=== PATIENT | female | born 1945 | race Caucasian/White ===

== ENCOUNTER 2018-10-13 11:52 | Day surgery (SDC) | payer MEDICARE ==
[2018-10-13 10:26] LABS: BASOPHILS ABSOLUTE AUTO 0.02 K/mm3 (0.00-0.23); BASOPHILS PERCENT AUTO 0 % (0-2); EOSINOPHILS ABSOLUTE AUTO 0.18 K/mm3 (0.00-0.68); EOSINOPHILS PERCENT AUTO 3 % (0-6); Hematocrit 26.4 % (33.0-51.0); Hemoglobin 7.7 g/dL (11.5-16.0); IMMATURE GRAN ABSOLUTE AUTO 0.02 K/mm3 (0.00-0.10); IMMATURE GRAN PERCENT AUTO 0 % (0-1); LYMPHOCYTES ABSOLUTE AUTO 1.84 K/mm3 (0.84-5.20); LYMPHOCYTES PERCENT AUTO 34 % (21-46); MONOCYTES ABSOLUTE AUTO 0.29 K/mm3 (0.16-1.47); MONOCYTES PERCENT AUTO 5 % (4-13); Mean Corpuscular HGB 24.2 pg (26.0-34.0); Mean Corpuscular HGB Conc 29.2 g/dL (31.5-36.5); Mean Corpuscular Volume 83 fL (80-100); Mean Platelet Volume 10.6 fL (9.1-12.4); NEUTROPHILS ABSOLUTE AUTO 3.08 K/mm3 (1.96-9.15); NEUTROPHILS PERCENT AUTO 57 % (41-73); Platelet Count 223 K/mm3 (150-400); RDW Coefficient Variation 15.3 % (11.7-14.2); RDW Standard Deviation 46.7 fL (35.1-46.3); Red Blood Cell Count 3.18 M/mm3 (3.80-5.20); White Blood Cell Count 5.43 K/mm3 (4.00-11.30)
[~2018-10-13 11:52] MED LIST: ALLO300 PO; ASPI81EC PO; CARV3.125 PO; CEPH500 PO; CITA20 PO; CLOP75 PO; CYCL10; EFFIENT10 MG PO; FURO40 PO; GLIM4 PO; HYDHCL25 PO; INSULANPEN SC; LOSA25 PO; METF500 PO; POTA10T PO; PRAV20 PO; Percocet 5-3251 EACH PO; SITA100T2 PO; VICODIN 5-3001 EACH
[2018-10-13] MEDS ORDERED: ALPR1 PO (15:17)
[2018-10-13] MEDS ORDERED: TRULICITY1.5 MG/0.5 SC (15:23)
[2018-10-13] MEDS ORDERED: TRAZ100 PO (15:24)
[2018-10-13] MEDS ORDERED: QVAR REDIHALE10.6 G1 INH (15:25)
[2018-10-13] MEDS ORDERED: ALBU90OI61 INH (15:27)
== END 2018-10-13 17:05 | disposition home or self-care (01) ==
LOC: ATC 11:52
PROVIDERS: Nurse Practitioner Family
DX: D50.8 Other iron deficiency anemias (principal)
CPT/HCPCS: 36415; 36430; 85025; 86850; 86900; 86901; 86923; J7050; P9016

== ENCOUNTER → 2018-11-08 | Outpatient (CLI) | payer MEDICARE ==
[~2018-11-08] MED LIST changes: +ALBU90OI61 INH; +ALPR1 PO; +QVAR REDIHALE10.6 G1 INH; +TRAZ100 PO; +TRULICITY1.5 MG/0.5 SC
[2018-11-09 06:18] LABS: Stool Occult Bld Immuno 1 Negative (NEGATIVE)
== END | disposition home or self-care (01) ==
LOC: LAB EV 13:55 → LAB SHORT 13:55
PROVIDERS: Nurse Practitioner Family
DX: D50.8 Other iron deficiency anemias (principal)
CPT/HCPCS: G0328

== ENCOUNTER → 2019-02-10 | Outpatient (CLI) | payer MEDICARE ==
[~2019-02-10] MED LIST changes: +ACID REDUCER 1150 MG PO; +Glucophage1000 MG PO; +Pravachol80 MG PO; +TRAZ50 PO; +TRULICITY0.75 MG/0. SC; +ZYRTEC10 M1 PO
== END ==
LOC: LAB EV 07:30
DX: E11.65 Type 2 diabetes mellitus with hyperglycemia (principal)
CPT/HCPCS: 82043

== ENCOUNTER → 2021-11-10 | Outpatient (CLI) | payer MEDICARE | LOC: LAB 17:38 → LAB SHORT 17:38 | DX: E53.8 Deficiency of other specified B group vitamins (principal) | CPT/HCPCS: 82607; 82746 ==

== ENCOUNTER 2023-02-15 10:36 | Day surgery (SDC) | payer MEDICARE ==
[~2023-02-15] VITALS: Ht 152.4 cm; Wt 92.5 kg
[2023-02-15] MEDS ORDERED: TRULICITY0.75 MG/01 (10:58)
[2023-02-15 12:57] VITALS: BP 90/77
== END 2023-02-15 12:45 | disposition home or self-care (01) ==
LOC: ORSCSDS 10:36
PROVIDERS: Student in an Organized Health Care Education/Training Program
PROC: 0DB68ZX Excision of Stomach, Via Natural or Artificial Opening Endoscopic, Diagnostic (ICD-10-PCS; principal; 2023-02-15 12:00)
DX: K74.60 Unspecified cirrhosis of liver (principal); K29.70 Gastritis, unspecified, without bleeding; K31.7 Polyp of stomach and duodenum; K44.9 Diaphragmatic hernia without obstruction or gangrene; D64.9 Anemia, unspecified; E11.22 Type 2 diabetes mellitus with diabetic chronic kidney disease; I12.9 Hypertensive chronic kidney disease with stage 1 through stage 4 chronic kidney disease, or unspecified chronic kidney disease; Z86.73 Personal history of transient ischemic attack (TIA), and cerebral infarction without residual deficits; E78.00 Pure hypercholesterolemia, unspecified; F41.9 Anxiety disorder, unspecified; F32.A Depression, unspecified; Z95.1 Presence of aortocoronary bypass graft; N18.30 Chronic kidney disease, stage 3 unspecified; R06.02 Shortness of breath; E66.01 Morbid (severe) obesity due to excess calories; Z68.41 Body mass index [BMI] 40.0-44.9, adult; Z79.02 Long term (current) use of antithrombotics/antiplatelets; Z79.899 Other long term (current) drug therapy
CPT/HCPCS: 82947; 88305; 88341; 88342; J2001; J2370; J2704; J7120

== ENCOUNTER → 2023-04-22 | Outpatient (CLI) | payer MEDICARE | END | disposition home or self-care (01) | LOC: LAB 08:33 | DX: I50.9 Heart failure, unspecified (principal); E11.22 Type 2 diabetes mellitus with diabetic chronic kidney disease; E11.59 Type 2 diabetes mellitus with other circulatory complications; N18.32 Chronic kidney disease, stage 3b; E78.2 Mixed hyperlipidemia; I25.10 Atherosclerotic heart disease of native coronary artery without angina pectoris ==

== ENCOUNTER 2024-12-25 09:44 | Observation (INO) | payer MEDICARE ==
[~2024-12-25] VITALS: Ht 149.9 cm; Wt 88.4 kg
[~2024-12-25 09:44] MED LIST changes: +ASPIR 8181 M1 PO; +BUSP5 PO; +CLOPIDOGREL300 M1; +FARXIGA5 MG PO; +MECL12.5 PO; +MONT10T PO; +Pravastatin Sod80 MG PO; +TRULICITY0.75 MG/01; +TRULICITY0.75 MG/01 SC; +Ventolin5 MG/1 ML INH; +Vitamin D1000 UNI1 PO
[2024-12-25 10:16] LABS: BASOPHILS ABSOLUTE AUTO 0.03 K/mm3 (0.00-0.23); BASOPHILS PERCENT AUTO 1 % (0-2); EOSINOPHILS ABSOLUTE AUTO 0.31 K/mm3 (0.00-0.68); EOSINOPHILS PERCENT AUTO 6 % (0-6); Hemoglobin 13.6 g/dL (11.5-16.0); IMMATURE GRAN ABSOLUTE AUTO 0.01 K/mm3 (0.00-0.10); IMMATURE GRAN PERCENT AUTO 0 % (0-1); LYMPHOCYTES ABSOLUTE AUTO 1.76 K/mm3 (0.84-5.20); LYMPHOCYTES PERCENT AUTO 31 % (21-46); MONOCYTES ABSOLUTE AUTO 0.36 K/mm3 (0.16-1.47); MONOCYTES PERCENT AUTO 6 % (4-13); Mean Corpuscular HGB 31.9 pg (26.0-34.0); Mean Corpuscular HGB Conc 33.2 g/dL (31.5-36.5); Mean Corpuscular Volume 96 fL (80-100); Mean Platelet Volume 10.9 fL (9.1-12.4); NEUTROPHILS ABSOLUTE AUTO 3.14 K/mm3 (1.96-9.15); NEUTROPHILS PERCENT AUTO 56 % (41-73); Platelet Count 142 K/mm3 (150-400); RDW Coefficient Variation 15.4 % (11.7-14.2); RDW Standard Deviation 53.7 fL (35.1-46.3); Red Blood Cell Count 4.27 M/mm3 (3.80-5.20); White Blood Cell Count 5.61 K/mm3 (4.00-11.30)
[2024-12-25 10:41] LABS: Albumin, Blood 3.8 g/dL (3.4-5.0); Bilirubin, Total 1.4 mg/dL (0.1-1.0); Bun/Creatinine Ratio 21.6 (12.0-20.0); Calcium, Blood 9.6 mg/dL (8.5-10.1); Creatinine, Blood 1.71 mg/dL (0.40-1.00); Globulin, Blood 3.8 g/dL (2.2-4.0); Potassium, Blood 3.9 mmol/L (3.5-5.5); Total Protein, Blood 7.6 g/dL (6.4-8.2)
[2024-12-25] MEDS ORDERED: Enoxaparin 100 MG/ML 1ML SYR SC SCH (12:30)
[2024-12-25 17:42] VITALS: BP 104/76
--- NOTE | 2024-12-25 18:07 | NUR ---
PATIENT ARRIVED TO FLOOR AT 1740 FROM ED AFTER RECEIVING REPORT FROM JENA-PIERRE AN RN. PATIENT ACCOMPANIED BY DAUGHTER, JASON, AND HER GRANDDAUGHTER. PLEASANT AND COOPERATIVE c CARE. NO C/O PAIN, BUT DOES REPORT SOME IRRITATION IN LAC R/T IV. PARESTHESIA LUE, BUT NOT DEFICIT NOTED ON NEURO EXAM. CARDIAC STENT PLACED 2012 AND OPEN-HEARTED SURGERY c METAL CLOSURES IN 2002 IN [facility]. FAXED REQUEST FOR RECORDS.
[2024-12-25 19:47] VITALS: BP 146/78
[2024-12-25] MEDS ORDERED: Montelukast Sodium 10 MG Tab PO SCH (21:00)
[2024-12-26 00:05] VITALS: BP 111/63
--- NOTE | 2024-12-26 03:55 | NUR ---
Inbound Sales Representative Shift Summary Vital signs stable. Patient has been instructed to use call light when getting out of bed or returning from the bathroom, although has had to be frequently reminded throughout the night to use call light when out of bed. Otherwise patient has been quielty resting in bed with SCD's on. Able to turn self in bed for comfort. Voiced discomfort of IV, but continues to flush well. Call light within reach, Bed rails up x2. Bed in lowest position for safety. Will continue to monitor.
--- NOTE | 2024-12-26 04:00 | NUR ---
I HAVE READ AND ASSISTED/OBSERVED STUDENT NURSE WITH CARE AND DOCUMENTATION. AND I AGREE WITH SAID INFO.
[2024-12-26 04:01] VITALS: BP 116/78
[2024-12-26 05:09] LABS: BASOPHILS ABSOLUTE AUTO 0.03 K/mm3 (0.00-0.23); BASOPHILS PERCENT AUTO 1 % (0-2); EOSINOPHILS ABSOLUTE AUTO 0.32 K/mm3 (0.00-0.68); EOSINOPHILS PERCENT AUTO 6 % (0-6); Hematocrit 40.1 % (33.0-51.0); Hemoglobin 13.1 g/dL (11.5-16.0); IMMATURE GRAN ABSOLUTE AUTO 0.01 K/mm3 (0.00-0.10); IMMATURE GRAN PERCENT AUTO 0 % (0-1); LYMPHOCYTES ABSOLUTE AUTO 2.26 K/mm3 (0.84-5.20); LYMPHOCYTES PERCENT AUTO 41 % (21-46); MONOCYTES ABSOLUTE AUTO 0.33 K/mm3 (0.16-1.47); MONOCYTES PERCENT AUTO 6 % (4-13); Mean Corpuscular HGB 31.5 pg (26.0-34.0); Mean Corpuscular HGB Conc 32.7 g/dL (31.5-36.5); Mean Corpuscular Volume 96 fL (80-100); Mean Platelet Volume 10.7 fL (9.1-12.4); NEUTROPHILS ABSOLUTE AUTO 2.55 K/mm3 (1.96-9.15); NEUTROPHILS PERCENT AUTO 46 % (41-73); Platelet Count 131 K/mm3 (150-400); RDW Coefficient Variation 15.4 % (11.7-14.2); Red Blood Cell Count 4.16 M/mm3 (3.80-5.20)
[2024-12-26 05:34] LABS: Anion Gap 12 mmol/L (3-11); Blood Urea Nitrogen 37 mg/dL (8-24); Bun/Creatinine Ratio 21.3 (12.0-20.0); CO2, Blood 27 mmol/L (21-32); Calcium, Blood 9.3 mg/dL (8.5-10.1); Chloride, Blood 104 mmol/L (98-108); Cholesterol 123 mg/dL (50-200); Creatinine, Blood 1.74 mg/dL (0.40-1.00); Glomerular Filtration Rate 29 (60-); Glucose, Blood 126 mg/dL (70-99); HDL Cholesterol 63 mg/dL (>39); LDL/HDL RATIO 0.6; Low Density Lipoprotein Chol 36 mg/dL (0-110); Potassium, Blood 3.5 mmol/L (3.5-5.5); Sodium, Blood 139 mmol/L (136-145); Triglycerides 119 mg/dL (30-160); Very Low Density Lipoprot Chol 23 mg/dL (6-32)
[2024-12-26 07:36] VITALS: BP 116/68
--- NOTE | 2024-12-26 08:05 | NUR ---
ASSUMPTION OF CARE: ASSUMED CARE OF PATIENT. WOKEN FOR BEDSIDE SHIFT REPORT. LYING SUPINE IN BED c HOB ELEVATED. ROOM AIR. TELE AFIB @ 78. BREATHING EVEN AND UNLABORED. ROOM AIR. TELE AFIB @ 78. PT TO ROOM TO WORK WITH PATIENT IMMEDIATELY AFTER REPORT. BED IN LOWEST POSITION. CALL LIGHT WITHIN REACH. NO ACUTE NEEDS.
[2024-12-26] MEDS ORDERED: Aspirin 81 MG Chew PO SCH (09:00)
[2024-12-26] MEDS ORDERED: Furosemide 10 MG/ML 4ML Vial IV SCH (09:00)
[2024-12-26] MEDS ORDERED: Loratadine 10 MG Tab PO SCH (09:00)
[2024-12-26] MEDS ORDERED: Pravastatin Sodium 20 MG Tab PO SCH (09:00)
[2024-12-26] MEDS ORDERED: Allopurinol 300 MG Tab PO SCH (09:00)
[2024-12-26] MEDS ORDERED: Empagliflozin 10 MG TAB PO SCH (09:00)
[2024-12-26] MEDS ORDERED: BusPIRone HCl 10 MG Tab PO SCH (09:00)
--- NOTE | 2024-12-26 10:59 | NUR ---
CALL FROM [facility] IN [place]: RECORDS PURGED D/T BEING >10 YEARS AND ARE NO LONGER AVAILABLE. CALL TO [facility] TO SEE IF THEY HAVE RECORDS PATIENT IS SEEN THERE AND HAD SIGNED JERALD AT ONE POINT TO HAVE RECORDS SENT. FRAMER SENT MESSAGE TO [facility] WHO WILL RETURN CALL ONCE THEY KNOW IF THEY HAVE RECORDS AVAILABLE OR NOT.
[2024-12-26] MEDS ORDERED: OZEMPIC2 MG/0.75 SC (11:04)
--- NOTE | 2024-12-26 14:29 | NUR ---
RECEIVED CALL FROM [facility]: THEY DO NOT HAVE A COPY OF PATIENT'S NOTES FROM [place] THEY HAVE ALSO BEEN PURGED. PATIENT ALSO DOES NOT HAVE A COPY OF THE STENT CARD IN HER [place]AL[place], SHE USED TO.
[2024-12-26 16:26] VITALS: BP 114/62
[2024-12-26] MEDS ORDERED: PRAV20 PO (17:53)
[2024-12-26] MEDS ORDERED: ELIQUIS2.5 MG PO (17:54)
--- NOTE | 2024-12-26 19:07 | NUR ---
DISCHARGE SUMMARY: A&Ox4. PLEASANT AND COOPERATIVE WITH CARE. CALLS APPROPRIATELY AND IS ABLE TO ADVOCATE NEEDS EFFECTIVELY. AMBULATES INDEPENDENTLY. MEDS WHOLE c FLUIDS. CONTINENT OF BOWEL AND BLADDER. TELE AFIB. UNABLE TO SECURE RECORDS FROM [place] REGARDING HEART PROCEDURES; MRI UNABLE TO BE DONE. WILL DO REPEAT CT OUTPATIENT. MEDICATIONS FAXED TO [facility]. INSTRUCTED TO FOLLOW-UP WITH PCP. LEFT FLOOR WITH ALL BELONGINGS AND DISCHARGE PACKET, ESCORTED BY DAUGHTER. TRANSPORTATION PROVIDED BY DAUGHTER VIA POV.
== END 2024-12-26 18:05 | disposition home or self-care (01) ==
LOC: ER 09:44 → MEDS 09:45
PROVIDERS: Emergency Medicine; ADMIT Internal Medicine
DX: I63.9 Cerebral infarction, unspecified (principal); I48.91 Unspecified atrial fibrillation; E11.22 Type 2 diabetes mellitus with diabetic chronic kidney disease; I13.0 Hypertensive heart and chronic kidney disease with heart failure and stage 1 through stage 4 chronic kidney disease, or unspecified chronic kidney disease; N18.4 Chronic kidney disease, stage 4 (severe); I50.33 Acute on chronic diastolic (congestive) heart failure; I25.10 Atherosclerotic heart disease of native coronary artery without angina pectoris; E78.5 Hyperlipidemia, unspecified; M81.0 Age-related osteoporosis without current pathological fracture; G47.33 Obstructive sleep apnea (adult) (pediatric); Z66 Do not resuscitate; Z88.8 Allergy status to other drugs, medicaments and biological substances; Z79.899 Other long term (current) drug therapy; Z91.011 Allergy to milk products; Z95.1 Presence of aortocoronary bypass graft
CPT/HCPCS: 36415; 70450; 71046; 80048; 80053; 80061; 83036; 83880; 84484; 85025; 93005; 93010; 93306; 96372; 96372-59; 96374; 97112; 97161; 99285-25; A9270; G0378; J1650; J1938; J1940

== ENCOUNTER 2025-03-04 14:44 | Inpatient (IN) | payer MEDICARE ==
[~2025-03-04] VITALS: Ht 149.9 cm; Wt 91.5 kg
[~2025-03-04 14:44] MED LIST changes: +ELIQUIS2.5 MG PO; +OZEMPIC2 MG/0.75 SC
[2025-03-04] MEDS ORDERED: NS 1,000 ML IV SCH (15:50)
[2025-03-04 16:32] LABS: Albumin, Blood 3.1 g/dL (3.4-5.0); Albumin/Globulin Ratio 0.9 (0.8-1.8); Bilirubin, Total 0.7 mg/dL (0.1-1.0); Calcium, Blood 8.6 mg/dL (8.5-10.1); Creatinine, Blood 1.95 mg/dL (0.40-1.00); Globulin, Blood 3.3 g/dL (2.2-4.0); Potassium, Blood 5.1 mmol/L (3.5-5.5); Total Protein, Blood 6.4 g/dL (6.4-8.2)
[2025-03-04 16:37] LABS: BASOPHILS ABSOLUTE AUTO 0.02 K/mm3 (0.00-0.23); BASOPHILS PERCENT AUTO 0 % (0-2); EOSINOPHILS PERCENT AUTO 0 % (0-6); IMMATURE GRAN ABSOLUTE AUTO 0.09 K/mm3 (0.00-0.10); IMMATURE GRAN PERCENT AUTO 1 % (0-1); LYMPHOCYTES ABSOLUTE AUTO 1.92 K/mm3 (0.84-5.20); LYMPHOCYTES PERCENT AUTO 22 % (21-46); MONOCYTES ABSOLUTE AUTO 0.46 K/mm3 (0.16-1.47); MONOCYTES PERCENT AUTO 5 % (4-13); Mean Corpuscular HGB 33.5 pg (26.0-34.0); Mean Corpuscular HGB Conc 32.5 g/dL (31.5-36.5); Mean Corpuscular Volume 103 fL (80-100); Mean Platelet Volume 10.9 fL (9.1-12.4); NEUTROPHILS PERCENT AUTO 72 % (41-73); NRBC Auto 1.1 /100 WBC (0.0-0.2); Platelet Count 205 K/mm3 (150-400); RDW Coefficient Variation 17.7 % (11.7-14.2); RDW Standard Deviation 61.7 fL (35.1-46.3); Red Blood Cell Count 1.64 M/mm3 (3.80-5.20); White Blood Cell Count 8.89 K/mm3 (4.00-11.30)
[2025-03-04 16:38] LABS: Hematocrit 16.9 % (33.0-51.0); Hemoglobin 5.5 g/dL (11.5-16.0)
[2025-03-04] MEDS ORDERED: Etomidate 2MG / ML 10ML Vial IV ONE (17:03)
[2025-03-04] MEDS ORDERED: Pantoprazole Sodium 40 MG in NS 50 ML IV SCH (17:50)
[2025-03-04] MEDS ORDERED: Phytonadione 10 MG in NS 50 ML IV ONE (17:50)
[2025-03-04] MEDS ORDERED: Human Prothrombin Complx(Pcc) 2,000 UNIT in Water For Injection,Sterile 80 ML IV ONE (18:00)
[2025-03-04 18:05] LABS: D-Dimer, Quantitative 0.36 mg/L FEU (0.00-0.52); Prothrombin Time Results 64.5 Sec (9.7-11.5)
[2025-03-04] MEDS ORDERED: Ondansetron HCl 2 MG / ML 2ML Vial IV PRN (18:20)
[2025-03-04] MEDS ORDERED: WARF5 PO (18:28)
[2025-03-04] MEDS ORDERED: Octreotide Acetate 50 MCG in NS 50 ML IV STA (18:31)
[2025-03-04 18:57] LABS: Percent Saturation 10.1 % (15.0-50.0)
[2025-03-04] MEDS ORDERED: Octreotide Acetate 500 MCG in NS 250 ML IV SCH (19:00)
[2025-03-04 19:01] LABS: International Normalized Ratio 6.75
[2025-03-04] MEDS ORDERED: Phenylephrine HCl 100 MCG/ML-NS 10MLSYR (1MG/10ML) IV ONE (19:32)
[2025-03-05] VITALS (12 sets, daily range): BP systolic 81–110; BP diastolic 52–72
[2025-03-05 01:45] LABS: Hemoglobin 7.3 g/dL (11.5-16.0)
[2025-03-05] MEDS ORDERED: Acetaminophen 325 MG TABLET PO PRN (04:50)
[2025-03-05] MEDS ORDERED: Metoprolol Tartrate 1 MG/ML 5 ML VIAL IV ONE (05:00)
[2025-03-05 05:58] LABS: BASOPHILS ABSOLUTE AUTO 0.02 K/mm3 (0.00-0.23); BASOPHILS PERCENT AUTO 0 % (0-2); EOSINOPHILS ABSOLUTE AUTO 0.07 K/mm3 (0.00-0.68); EOSINOPHILS PERCENT AUTO 1 % (0-6); Hematocrit 21.1 % (33.0-51.0); Hemoglobin 7.1 g/dL (11.5-16.0); IMMATURE GRAN ABSOLUTE AUTO 0.08 K/mm3 (0.00-0.10); IMMATURE GRAN PERCENT AUTO 1 % (0-1); LYMPHOCYTES ABSOLUTE AUTO 1.96 K/mm3 (0.84-5.20); LYMPHOCYTES PERCENT AUTO 20 % (21-46); MONOCYTES ABSOLUTE AUTO 0.62 K/mm3 (0.16-1.47); MONOCYTES PERCENT AUTO 6 % (4-13); Mean Corpuscular HGB Conc 33.6 g/dL (31.5-36.5); Mean Corpuscular Volume 95 fL (80-100); Mean Platelet Volume 11.2 fL (9.1-12.4); NEUTROPHILS ABSOLUTE AUTO 7.18 K/mm3 (1.96-9.15); NEUTROPHILS PERCENT AUTO 72 % (41-73); Platelet Count 147 K/mm3 (150-400); RDW Coefficient Variation 19.9 % (11.7-14.2); RDW Standard Deviation 63.7 fL (35.1-46.3); Red Blood Cell Count 2.22 M/mm3 (3.80-5.20); White Blood Cell Count 9.93 K/mm3 (4.00-11.30)
[2025-03-05 06:10] LABS: International Normalized Ratio 1.33
[2025-03-05 06:24] LABS: Albumin/Globulin Ratio 1.1 (0.8-1.8); Bilirubin, Total 1.9 mg/dL (0.1-1.0); Bun/Creatinine Ratio 40.3 (12.0-20.0); Calcium, Blood 8.3 mg/dL (8.5-10.1); Creatinine, Blood 2.16 mg/dL (0.40-1.00); Globulin, Blood 2.7 g/dL (2.2-4.0); Magnesium, Blood 2.6 mg/dL (1.6-2.4); Potassium, Blood 4.2 mmol/L (3.5-5.5); Prothrombin Time Results 14.3 Sec (9.7-11.5); Total Protein, Blood 5.7 g/dL (6.4-8.2)
--- NOTE | 2025-03-05 06:25 | NUR ---
SHIFT SUMMARY PATTIENT ARRIVED FROM ER AT 0030. AWAKE AND ALERT. OCTREOTIDE INFUSING. PROTONIX DRIP STARTED. AFIB ON TELEMETRY WITH RATE 120-130S. HYPOTENSIVE. CLEAR LUNG SOUNDS ON ROOM AIR. ENDORSES DIZZINESS AND SOME SLIGHT DISCOMFORT IN CHEST (NOTED THIS HAS BEEN ONGOING). AT 0400 PATIENT STATED SHE WAS IN PAIN, PRN PAIN MEDICATION ORDERED. PROVIDER ALSO MADE AWARE OF HR REMAINING IN 120'S. NEW ORDERS RECEIVED. SYSTOLIC BLOOD PRESSURE DROPPED TO 87, WITH MAP >65. PATIENT STATES SHE IS HYPOTENSIVE AT BASELINE. REMAINS NPO. PATIENT STATING SHE FEELS RESTLESS, TURNING SELF FREQUENTLY IN BED. UP TO BEDSIDE COMMODE ONCE. UNABLE TO MEASURE THERE WAS A CRACK IN COMMODE BASIN. STATES PRN PAIN MEDICATION HELPED WITH HEADACHE. CARE PLAN CONTINUED ORDERED.
[2025-03-05] MEDS ORDERED: NS 250 ML IV PRN (09:45)
[2025-03-05] MEDS ORDERED: Digoxin 0.25 MG/ML 2ML Amp IV ONE (10:50)
[2025-03-05] MEDS ORDERED: rOPINIRole HCl 0.25 MG Tab PO PRN (12:05)
[2025-03-05 13:47] LABS: Hematocrit 22.9 % (33.0-51.0); Hemoglobin 7.5 g/dL (11.5-16.0)
[2025-03-05] MEDS ORDERED: Lactated Ringer's 1,000 ML IV SCH (14:40)
[2025-03-05] MEDS ORDERED: Benzocaine Oral Spray 0.5ML UD ONE (14:46)
--- NOTE | 2025-03-05 14:52 | NUR ---
PT CURRENTLY TAKEN FOR EGD, DAUGHTER CAME RIGHT IN TIME AND FOLLOWED PT TO THE WAITING AREA.
[2025-03-05] MEDS ORDERED: propofoL 20 ML IV ONE (15:59)
--- NOTE | 2025-03-05 16:10 | NUR ---
03/05/25 1610 Suha Newberry 1558-INTO ENDO 1: History, Chart, Medications and Allergies reviewed before start of procedure.MONITOR INTACT WITH CONTINUOUS PULSE OXIMETRY, CONTINUOUS END TITAL CO2, 3-LEAD EKG AND INTERMITTENT BLOOD PRESSURE.3-LEAD EKG REVIEWED WITH PHYSICIAN PRIOR TO START OF PROCEDURE.O2 VIA POM INTACT THROUGHOUT SEDATION/PROCEDURE.HURRICAINE SPRAY TO OROPHARYX.Bite Block Placed.
--- NOTE | 2025-03-05 17:04 | NUR ---
PT SUMMARY: PT HAD EGD DONE THIS AFTERNOON, PUSH ENTEROSCOPY DONE NO ACUTE BLEEDING AT THIS TIME. DR PERRY CAME AT THE BEDSIDE WAS ABLE TO DISCUSS WITH BOTH PT AND DAUGHTER AT THE BEDSIDE THE RESULT OF THE SCOPE. PT HAD 1UPRBC INFUSED FOR THE SHIFT REPEAT H&H DONE AT 1300 HGB UP TO 7.5. VERIFIED WITH DR PERRY TO STOP OCREOTIDE GTT AND PROTONIX GTT TO SWITCH PT TO P.O. PPI MEDS. VITALS HRR SFIB 120-140'S DIGOXIN PUSH 0.5 IV GIVEN ONCE AND HRR STAYED 110-120'S, SBP REMAINED SOFT ALL T/O SHIFT 80-100'S MAP KEPT ABOVE 65, SAT ABOVE 95% ON RA, AFEBRILE. PT AHS BEEN AMBULATING TO THE BATHROOM VIA WALKER SBA FOR TRANSFERS, STARTED ON CLEAR LIQUID DIET TOLERATING WELL AT THIS TIME. NO BLOODY EMESIS OR BM NOTED FOR THE SHIFT. DAUGHTER REMAINS AT THE BEDSIDE. NO OTHER ISSUES AT THIS TIME. [facility]
[2025-03-05] MEDS ORDERED: Insulin Human Lispro 100 Units/ML 3ML Syringe SC SCH (21:00)
[2025-03-06] VITALS (15 sets, daily range): BP systolic 76–167; BP diastolic 43–88
[2025-03-06 04:42] LABS: BASOPHILS ABSOLUTE AUTO 0.02 K/mm3 (0.00-0.23); BASOPHILS PERCENT AUTO 0 % (0-2); EOSINOPHILS ABSOLUTE AUTO 0.17 K/mm3 (0.00-0.68); EOSINOPHILS PERCENT AUTO 2 % (0-6); Hematocrit 19.1 % (33.0-51.0); Hemoglobin 6.4 g/dL (11.5-16.0); IMMATURE GRAN ABSOLUTE AUTO 0.04 K/mm3 (0.00-0.10); IMMATURE GRAN PERCENT AUTO 0 % (0-1); LYMPHOCYTES ABSOLUTE AUTO 2.09 K/mm3 (0.84-5.20); LYMPHOCYTES PERCENT AUTO 22 % (21-46); MONOCYTES PERCENT AUTO 7 % (4-13); Mean Corpuscular HGB 31.5 pg (26.0-34.0); Mean Corpuscular HGB Conc 33.5 g/dL (31.5-36.5); Mean Corpuscular Volume 94 fL (80-100); Mean Platelet Volume 10.2 fL (9.1-12.4); NEUTROPHILS ABSOLUTE AUTO 6.63 K/mm3 (1.96-9.15); NEUTROPHILS PERCENT AUTO 69 % (41-73); NRBC ABSOLUTE 0.04 K/mm3 (0.00-0.02); NRBC Auto 0.4 /100 WBC (0.0-0.2); Platelet Count 172 K/mm3 (150-400); RDW Coefficient Variation 18.8 % (11.7-14.2); RDW Standard Deviation 58.3 fL (35.1-46.3); Red Blood Cell Count 2.03 M/mm3 (3.80-5.20); White Blood Cell Count 9.65 K/mm3 (4.00-11.30)
[2025-03-06 04:59] LABS: International Normalized Ratio 1.14; Prothrombin Time Results 12.4 Sec (9.7-11.5)
[2025-03-06 05:00] LABS: Albumin, Blood 2.8 g/dL (3.4-5.0); Albumin/Globulin Ratio 1.2 (0.8-1.8); Bilirubin, Total 1.3 mg/dL (0.1-1.0); Bun/Creatinine Ratio 40.4 (12.0-20.0); Calcium, Blood 7.9 mg/dL (8.5-10.1); Creatinine, Blood 2.28 mg/dL (0.40-1.00); Globulin, Blood 2.4 g/dL (2.2-4.0); Potassium, Blood 4.2 mmol/L (3.5-5.5); Total Protein, Blood 5.2 g/dL (6.4-8.2)
[2025-03-06] MEDS ORDERED: Pantoprazole Sodium 40 MG Tab PO SCH (06:00)
--- NOTE | 2025-03-06 06:48 | NUR ---
PT STATUS UNCHANGED THROUGHOUT THE SHIFT. PT AOX4, ABLE TO USE CALL LIGHT AND MAKE NEEDS KNOWN. PT REMAINS IN AFIB 90s-110s. PT CONTINUES TO HAVE SOFT BPS, NO C/O LIGHTHEADEDNESS OR DIZZINESS. NO CHEST PAIN OR DYSPNEA. PT CONTINUES TO BE ANEMIC AND IS GETTING 1 UNIT PRBC THIS MORNING. VITAL SIGNS REMAIN UNCHANGED, PT IS AFEBRILE. PRBC UNIT INFUSING AT 125ML/HR. NO S/S OF BLEEDING, NO HEMATEMESIS, MELENA, OR BLOOD STOOLS. NO BRUISING, ABDOMINAL SWELLING OR TENDERNESS.
[2025-03-06 12:25] LABS: Hematocrit 21.4 % (33.0-51.0); Hemoglobin 7.3 g/dL (11.5-16.0)
--- NOTE | 2025-03-06 14:43 | NUR ---
CARE ASSUMPTION PT A&OX4, ABLE TO MAKE NEEDS KNOWN. SP02>90% ON RA. TELEMETRY SHOWS AFIB, HR MOSTLY 80'S. BP SOFT. SITTING IN RECLINER CONVERSING W/ DAUGHTER. SALINE LOCKED. CURRENTLY SLEEPING IN BED, CALL LIGHT IN REACH.
--- NOTE | 2025-03-06 17:59 | NUR ---
SHIFT SUMMARY NO ACUTE CHANGES SINCE CARE ASSUMPTION. PT ALERT, ORIENTED, BP CONTINUES TO BE SOFT. DENIES PAIN, STATES SHE FEELS BETTER THAN WHEN SHE FIRST CAME IN, JUST WEAK. UP TO BSC TO VOID. CBG ELEVATED THIS SHIFT, COVERED PER EMAR MEDIUM SLIDING SCALE. DAUGHTER IN ROOM MOST OF SHIFT. MD PERRY IN ROOM THIS EVENING TO ASSESS. SITTING IN RECLINER EATING DINNER. CALL LIGHT IN REACH.
[2025-03-06] MEDS ORDERED: Labetalol HCL 5 MG/ML 4ML Injection (Single Dose) IV PRN (22:20)
[2025-03-06] MEDS ORDERED: Digoxin 0.25 MG Tab PO SCH (23:00)
[2025-03-07] VITALS (14 sets, daily range): BP systolic 93–137; BP diastolic 47–70
[2025-03-07] MEDS ORDERED: Insulin Glargine-Yfgn 100 Unit/mL 3 ML SYR SC SCH (01:00)
[2025-03-07 04:27] LABS: BASOPHILS ABSOLUTE AUTO 0.01 K/mm3 (0.00-0.23); BASOPHILS PERCENT AUTO 0 % (0-2); EOSINOPHILS PERCENT AUTO 1 % (0-6); Hematocrit 19.1 % (33.0-51.0); Hemoglobin 6.3 g/dL (11.5-16.0); IMMATURE GRAN ABSOLUTE AUTO 0.04 K/mm3 (0.00-0.10); IMMATURE GRAN PERCENT AUTO 1 % (0-1); LYMPHOCYTES ABSOLUTE AUTO 1.67 K/mm3 (0.84-5.20); LYMPHOCYTES PERCENT AUTO 22 % (21-46); MONOCYTES ABSOLUTE AUTO 0.58 K/mm3 (0.16-1.47); MONOCYTES PERCENT AUTO 8 % (4-13); Mean Corpuscular HGB 31.5 pg (26.0-34.0); Mean Corpuscular Volume 96 fL (80-100); Mean Platelet Volume 10.2 fL (9.1-12.4); NEUTROPHILS ABSOLUTE AUTO 5.25 K/mm3 (1.96-9.15); NEUTROPHILS PERCENT AUTO 69 % (41-73); NRBC ABSOLUTE 0.03 K/mm3 (0.00-0.02); NRBC Auto 0.4 /100 WBC (0.0-0.2); Platelet Count 153 K/mm3 (150-400); RDW Coefficient Variation 17.2 % (11.7-14.2); RDW Standard Deviation 55.1 fL (35.1-46.3); White Blood Cell Count 7.65 K/mm3 (4.00-11.30)
[2025-03-07 04:50] LABS: Albumin, Blood 2.4 g/dL (3.4-5.0); Bilirubin, Total 1.2 mg/dL (0.1-1.0); Bun/Creatinine Ratio 38.3 (12.0-20.0); Calcium, Blood 7.8 mg/dL (8.5-10.1); Creatinine, Blood 2.06 mg/dL (0.40-1.00); Globulin, Blood 2.4 g/dL (2.2-4.0); Potassium, Blood 3.9 mmol/L (3.5-5.5); Total Protein, Blood 4.8 g/dL (6.4-8.2)
--- NOTE | 2025-03-07 06:08 | NUR ---
SHIFT SUMMARY PT REMAINS A&OX4. BPs SOFT BUT BETTER WITH MAP >65. ORDERED DIGOXIN, GIVEN. ON TELE PT REMAINS IN AFIB 90s-100s. WITH EXERTION 130s MAX. PTs HGB RESULTED TO 6.3 THIS AM. BREONNA NOTIFIED AND 1 UNIT PRBCs ORDERED, CURRENTLY TRANSFUSING. PT UP TO BATHROOM WITH X2A FWW. NO BMs THROUGHOUT NIGHT, PT BLOATED AND HAVING GAS ALL NIGHT. PT USING CPAP THROUGHOUT NIGHT MANTAINING >96%. NO FURTHER QUESTIONS OR CONCERNS AT THIS TIME.
[2025-03-07 11:26] LABS: Hematocrit 19.8 % (33.0-51.0); Hemoglobin 6.6 g/dL (11.5-16.0)
--- NOTE | 2025-03-07 14:33 | NUR ---
UPDATE: PT UP TO BEDSIDE COMMODE TO HAVE A BOWEL MOVEMENT. PT HAD APPROX 1500ML OF MAROON COLORED JELLY LIKE STOOL OUT. PROVIDER AND SURGEON NOTIFIED. PT REPORTS FEELING TIRED AND WEAK, WORSE THEN EARLIER. VSS. 1 UNIT OF BLOOD STARTED PER PROVIDER ORDERS.
--- NOTE | 2025-03-07 15:05 | NUR ---
UPDATE: PT RESTING COMFORTABLY IN BED. BLOOD CONTINUES TO INFUSE. BLOOD PRESSURE SOFT, MAP >65. DENIES ANY COMPLAINTS OF CP, PRESSURE, TIGHTNESS OR SOB.
[2025-03-07] MEDS ORDERED: Sodium, Potassium,Mag Sulfates 354 ML PO SCH (18:00)
--- NOTE | 2025-03-07 19:21 | NUR ---
SHIFT SUMMARY: PT A&OX4 FOLLOWS COMMANDS AND MAKES NEEDS KNOWN TO STAFF. PT REMAINED FREE OF ANY CP, PRESSURE, TIGHTNESS OR SOB THIS SHIFT. SEE PREVIOUS NOTE REGARDING BLOODY STOOL TODAY. PT REPORTS FEELING TIRED TODAY ADN RECIEVED A TOTAL OF 2 UNITS OF BLOOD TODAY. BOWEL PREP WAS STARTED THIS EVENING FOR COLONOSCOPY TOMORROW MORNING. NO OTHER SIGNIFICANT EVENTS HAPPENED DURING THIS SHIFT. WILL CONTINUE TO CARE FOR PT TILL END OF SHIFT.
[2025-03-07 19:49] LABS: Hematocrit 28.4 % (33.0-51.0); Hemoglobin 9.3 g/dL (11.5-16.0)
[2025-03-07] MEDS ORDERED: Promethazine HCl 25 MG Tab PO PRN (20:20)
[2025-03-07] MEDS ORDERED: Metoclopramide HCl 5MG / ML 2ML Vial IV PRN (20:35)
[2025-03-08] VITALS (11 sets, daily range): BP systolic 87–128; BP diastolic 50–71
[2025-03-08 04:05] LABS: BASOPHILS ABSOLUTE AUTO 0.01 K/mm3 (0.00-0.23); BASOPHILS PERCENT AUTO 0 % (0-2); EOSINOPHILS ABSOLUTE AUTO 0.04 K/mm3 (0.00-0.68); EOSINOPHILS PERCENT AUTO 1 % (0-6); Hematocrit 24.4 % (33.0-51.0); IMMATURE GRAN ABSOLUTE AUTO 0.05 K/mm3 (0.00-0.10); IMMATURE GRAN PERCENT AUTO 1 % (0-1); LYMPHOCYTES ABSOLUTE AUTO 1.46 K/mm3 (0.84-5.20); LYMPHOCYTES PERCENT AUTO 22 % (21-46); MONOCYTES ABSOLUTE AUTO 0.56 K/mm3 (0.16-1.47); MONOCYTES PERCENT AUTO 8 % (4-13); Mean Corpuscular HGB 29.6 pg (26.0-34.0); Mean Corpuscular HGB Conc 32.8 g/dL (31.5-36.5); Mean Platelet Volume 9.4 fL (9.1-12.4); NEUTROPHILS ABSOLUTE AUTO 4.61 K/mm3 (1.96-9.15); NEUTROPHILS PERCENT AUTO 69 % (41-73); NRBC ABSOLUTE 0.03 K/mm3 (0.00-0.02); NRBC Auto 0.4 /100 WBC (0.0-0.2); Platelet Count 151 K/mm3 (150-400); RDW Coefficient Variation 18.4 % (11.7-14.2); RDW Standard Deviation 54.1 fL (35.1-46.3); White Blood Cell Count 6.73 K/mm3 (4.00-11.30)
[2025-03-08 04:21] LABS: Mean Corpuscular Volume 90 fL (80-100)
--- NOTE | 2025-03-08 04:34 | NUR ---
SHIFT SUMMARY THIS RN ASSUMED CARE OF PATIENT AT 1900. PT A&O X4. ABLE TO MAKE NEEDS KNOWN. PT RECEIVED FIRST HALF OF BOWEL PREP PRIOR TO SHIFT CHANGE. PT WITH MULTIPLE LARGE INCONTINENT/CONTINENT EPISODES OF LIQUID MAROON BM'S DURING THIS SHIFT. PT WITH N/V SHORTLY AFTER BOWEL PREP. ZOFRAN GIVEN AT SHIFT CHANGE WITH LITTLE EFFECT. ORDER PER MD FOR REGLAN; GIVEN PER EMAR. PT REPORTED RELIEF SINCE. PT EDUCATED ON BOWEL PREP AND COLONOSCOPY PROCEDURE. PT WILL GET SECOND HALF OF BOWEL PREP AT 0600. AFIB ON MONITOR WITH HR 80-120'S DEPENDING ON EXERTION. BP STABLE, WITH OCCASIONAL LOW SBP, BUT MAP REMAINS >65. ON RA WITH SPO2 >92%. BED IN LOWEST POSITION AND CALL LIGHT WITHIN REACH. THIS RN WILL REPORT TO ONCOMING DAYSHIFT RN.
[2025-03-08 04:59] LABS: Bun/Creatinine Ratio 36.7 (12.0-20.0); Calcium, Blood 7.9 mg/dL (8.5-10.1); Creatinine, Blood 1.8 mg/dL (0.40-1.00); Potassium, Blood 3.5 mmol/L (3.5-5.5)
[2025-03-08] MEDS ORDERED: Lactated Ringer's 1,000 ML IV SCH (11:55)
[2025-03-08] MEDS ORDERED: propofoL 40 ML IV ONE (12:13)
--- NOTE | 2025-03-08 12:17 | NUR ---
PT INTO [facility] FOR COLONOSCOPY PER DR. PERRY Patient confirms NPO status and agrees with scheduled surgery. History, Chart, Medications and Allergies reviewed before start of procedure.Pre-Op teaching done. Pt verbalizes understanding. DAUGHTER AT BS.
[2025-03-08] MEDS ORDERED: Albuterol 2.5 MG/3 ML VIAL INH PRN (12:55)
--- NOTE | 2025-03-08 13:27 | NUR ---
03/08/25 1327 Sara Hitchcock MONITOR INTACT WITH CONTINUOUS PULSE OXIMETRY, CONTINUOUS END TITAL CO2, 3-LEAD EKG AND INTERMITTENT BLOOD PRESSURE. ANESTHESIA PER DR. ADAM.
[2025-03-08 15:35] LABS: Hematocrit 22.9 % (33.0-51.0); Hemoglobin 7.6 g/dL (11.5-16.0)
--- NOTE | 2025-03-08 18:01 | NUR ---
End of Shift Pt A&O x4. BP soft, otherwise VSS. Spo2 > 92% on RA. Monitor showing Afib, HR 80s-90s w/ brief increase to 130s when up to BSC this AM. Pt NPO this morning leading up to colonoscopy. Pt up to BSC w/ liquid dark maroon stool after completing bowel prep. Pt gone for colonoscopy @ approx 1200. MD Lewis w/ okay for pt to resume clear liquid diet following procedure. Pt tolerating well. Pt denying abd pain/discomfort, n/v this shift. This RN did not witness pt's last BM this afternoon, but pt states "there was no blood. It was my first normal poop in awhile."
[2025-03-08] MEDS ORDERED: BusPIRone HCl 10 MG Tab PO SCH (21:00)
[2025-03-08] MEDS ORDERED: Pravastatin Sodium 20 MG Tab PO SCH (21:00)
[2025-03-09] VITALS (7 sets, daily range): BP systolic 88–116; BP diastolic 42–663
[2025-03-09 04:08] LABS: BASOPHILS ABSOLUTE AUTO 0.02 K/mm3 (0.00-0.23); BASOPHILS PERCENT AUTO 0 % (0-2); EOSINOPHILS ABSOLUTE AUTO 0.13 K/mm3 (0.00-0.68); EOSINOPHILS PERCENT AUTO 2 % (0-6); Hematocrit 21.7 % (33.0-51.0); Hemoglobin 7.2 g/dL (11.5-16.0); IMMATURE GRAN ABSOLUTE AUTO 0.03 K/mm3 (0.00-0.10); IMMATURE GRAN PERCENT AUTO 1 % (0-1); LYMPHOCYTES ABSOLUTE AUTO 1.67 K/mm3 (0.84-5.20); LYMPHOCYTES PERCENT AUTO 25 % (21-46); MONOCYTES PERCENT AUTO 9 % (4-13); Mean Corpuscular HGB 30.5 pg (26.0-34.0); Mean Corpuscular HGB Conc 33.2 g/dL (31.5-36.5); Mean Corpuscular Volume 92 fL (80-100); Mean Platelet Volume 9.7 fL (9.1-12.4); NEUTROPHILS ABSOLUTE AUTO 4.18 K/mm3 (1.96-9.15); NEUTROPHILS PERCENT AUTO 63 % (41-73); Platelet Count 136 K/mm3 (150-400); RDW Coefficient Variation 18.7 % (11.7-14.2); Red Blood Cell Count 2.36 M/mm3 (3.80-5.20); White Blood Cell Count 6.63 K/mm3 (4.00-11.30)
[2025-03-09 04:33] LABS: Albumin, Blood 2.3 g/dL (3.4-5.0); Bilirubin, Total 1.2 mg/dL (0.1-1.0); Calcium, Blood 7.5 mg/dL (8.5-10.1); Creatinine, Blood 1.54 mg/dL (0.40-1.00); Globulin, Blood 2.3 g/dL (2.2-4.0); Total Protein, Blood 4.6 g/dL (6.4-8.2)
[2025-03-09] MEDS ORDERED: Potassium Chloride 20 MEQ TabCR PO SCH (04:50)
--- NOTE | 2025-03-09 05:12 | NUR ---
SHIFT SUMMARY THIS RN ASSUMED CARE OF PATIENT AT 1900. PT A&O X4. NO BOWEL MOVEMENTS OR S/S OF BLEEDING NOTED DURING THIS SHIFT. HGB 7.2 THIS AM. AFIB WITH HR 80'S DURING THIS SHIFT. BP SOFT BUT MAP >65. USING CPAP FOR SLEEP, OTHERWISE ON RA. REPORTS IMPROVEMENT TO SOB. AMBULATING TO BATHROOM WITH FWW. K+ OF 3.0 THIS AM. NOTIFIED MD RAVI. WILL MEDICATE PER EMAR AND MD ORDER. PT WITH GLUCOSE OF 65 ON MORNING LABS. PT GIVEN APPLE JUICE WITH RECHECK OF 78. BED IN LOWEST POSITION AND CALL LIGHT WITHIN REACH. THIS RN [facility].
[2025-03-09] MEDS ORDERED: Montelukast Sodium 10 MG Tab PO SCH (09:00)
[2025-03-09] MEDS ORDERED: Empagliflozin 10 MG TAB PO SCH (09:00)
[2025-03-09] MEDS ORDERED: Loratadine 10 MG Tab PO SCH (09:00)
[2025-03-09] MEDS ORDERED: Allopurinol 300 MG Tab PO SCH (09:00)
--- NOTE | 2025-03-09 12:32 | NUR ---
Spiritual Care Visit. Pt. is awake and sitting on the side of her bed when she welcomes my visit. Pt. is pleasant, and is known to this millinery copyist from the community. Facilitated a life review and medical update. Pt. displays evidence of being highly encouraged by the care she has received by everyone at this hospital. Considered matters of maxine and belief. Prayed with the Pt. Pt. verbalized gratitude for the spiritual care visit and requested this millinery copyist to let one of her friends know that this millinery copyist had seen her.
--- NOTE | 2025-03-09 16:56 | NUR ---
SHIFT SUMMARY PT A&OX4, PLEASANT. SP02>90% ON RA, SOB W/ EXERTION. TELEMETRY SHOWS AFIB, HR 70'S-90'S. UP TO BATHROOM TO VOID, NO BM. NEW R FLANK BRUISING NOTED, MD WAGNER NOTIFIED. PT C/O OF RESTLESS LEGS THIS AFTERNOON, NOTIFIED. PT UP IN RECLINER AND AMBULATED AROUND UNIT TODAY W/ WALKER SBA. CHANGED TO MED/TELE STATUS. PROGRESSED TO FULL LIQUID DIET. LAYING IN BED, NAPPING BEFORE DINNER, CALL LIGHT IN REACH.
[2025-03-09] MEDS ORDERED: Cyclobenzaprine HCl 10 MG Tab PO PRN (18:10)
[2025-03-10 00:34] VITALS: BP 97/54
[2025-03-10 03:45] VITALS: BP 103/83
--- NOTE | 2025-03-10 05:05 | NUR ---
SHIFT SUMMARY PT A&Ox4 AND VERY PLEASANT. NO C/O PAIN BUT PT DID C/O RESTLESS LEGS AND LEG CRAMPS. MEDICATED PER EMAR WITH LITTLE RELIEF. ALSO TRIED REPOSITIONING IN BED, CHAIR AND LEG MASSAGE. PT SLEPT VERY LITTLE IN PART D/T RESTLESS LEGS AND PT STATED FROM BEING IN BED FOR SO MANY DAYS. PT USED HOME CPAP DURING THE NIGHT. CONTINIOUS BIOX IN PLACE. BG 160 AT HS AND GLARGINE GIVEN PER EMAR. VSS BUT BP REMAINS SOFT. BED IN LOWEST POSITION AND CALL LIGHT IN REACH.
[2025-03-10 05:42] LABS: BASOPHILS ABSOLUTE AUTO 0.01 K/mm3 (0.00-0.23); BASOPHILS PERCENT AUTO 0 % (0-2); EOSINOPHILS ABSOLUTE AUTO 0.11 K/mm3 (0.00-0.68); EOSINOPHILS PERCENT AUTO 2 % (0-6); Hematocrit 24.7 % (33.0-51.0); Hemoglobin 7.6 g/dL (11.5-16.0); IMMATURE GRAN ABSOLUTE AUTO 0.02 K/mm3 (0.00-0.10); IMMATURE GRAN PERCENT AUTO 0 % (0-1); LYMPHOCYTES ABSOLUTE AUTO 1.39 K/mm3 (0.84-5.20); LYMPHOCYTES PERCENT AUTO 28 % (21-46); MONOCYTES ABSOLUTE AUTO 0.38 K/mm3 (0.16-1.47); MONOCYTES PERCENT AUTO 8 % (4-13); Mean Corpuscular HGB 29.6 pg (26.0-34.0); Mean Corpuscular HGB Conc 30.8 g/dL (31.5-36.5); Mean Corpuscular Volume 96 fL (80-100); NEUTROPHILS ABSOLUTE AUTO 3.06 K/mm3 (1.96-9.15); NEUTROPHILS PERCENT AUTO 62 % (41-73); Platelet Count 149 K/mm3 (150-400); RDW Coefficient Variation 18.4 % (11.7-14.2); RDW Standard Deviation 61.9 fL (35.1-46.3); Red Blood Cell Count 2.57 M/mm3 (3.80-5.20); White Blood Cell Count 4.97 K/mm3 (4.00-11.30)
[2025-03-10 06:10] LABS: Albumin, Blood 2.7 g/dL (3.4-5.0); Bilirubin, Total 1.3 mg/dL (0.1-1.0); Bun/Creatinine Ratio 21.8 (12.0-20.0); Calcium, Blood 8.3 mg/dL (8.5-10.1); Creatinine, Blood 1.47 mg/dL (0.40-1.00); Globulin, Blood 2.6 g/dL (2.2-4.0); Magnesium, Blood 2.1 mg/dL (1.6-2.4); Potassium, Blood 4.4 mmol/L (3.5-5.5); Total Protein, Blood 5.3 g/dL (6.4-8.2)
[2025-03-10 07:04] VITALS: BP 92/35
[2025-03-10 08:03] VITALS: BP 90/48
[2025-03-10] MEDS ORDERED: Metoprolol Succinate 25 MG TABCR PO SCH (09:00)
[2025-03-10 11:18] VITALS: BP 93/64
[2025-03-10] MEDS ORDERED: BASAGLAR K100 UNIT/1 SC (15:03)
[2025-03-10] MEDS ORDERED: Cyclobenzaprine5 MG PO (15:03)
[2025-03-10] MEDS ORDERED: METO25ER PO (15:04)
[2025-03-10] MEDS ORDERED: ROPI.25 PO (15:04)
[2025-03-10] MEDS ORDERED: PANT40 PO (15:04)
--- NOTE | 2025-03-10 15:54 | NUR ---
DISCHARGE NOTE PT DISCHARGED TO HOME, PICKED UP BY HER DAUGHTER. PG REMOVED, TELE RETURNED. MEDICATIONS FAXED TO THE PHARMACY OF HER CHOICE. DISCHARGE EDUCATION AND INFORMATION REVIEWED WITH THE PT. DAUGHTER WAS PRESENT. TAKEN TO VEHICLE BY WC. PERSONAL BELONGINGS RETURNED.
== END 2025-03-10 16:22 | disposition home or self-care (01) | DRG 378 ==
LOC: ER 14:44 → ERHOLD 18:15 → PCU 18:15 → MEDS 03-09 18:30
PROVIDERS: Family Medicine; Internal Medicine; Student in an Organized Health Care Education/Training Program; Surgery; ADMIT Student in an Organized Health Care Education/Training Program
PROC: 30233N1 Transfusion of Nonautologous Red Blood Cells into Peripheral Vein, Percutaneous Approach (ICD-10-PCS; principal; 2025-03-04)
PROC: 0DJ08ZZ Inspection of Upper Intestinal Tract, Via Natural or Artificial Opening Endoscopic (ICD-10-PCS; 2025-03-05)
PROC: 0DJD8ZZ Inspection of Lower Intestinal Tract, Via Natural or Artificial Opening Endoscopic (ICD-10-PCS; 2025-03-08)
DX: K92.1 Melena (principal); I65.29 Occlusion and stenosis of unspecified carotid artery; I13.0 Hypertensive heart and chronic kidney disease with heart failure and stage 1 through stage 4 chronic kidney disease, or unspecified chronic kidney disease; N17.9 Acute kidney failure, unspecified; Z66 Do not resuscitate; N18.4 Chronic kidney disease, stage 4 (severe); I50.32 Chronic diastolic (congestive) heart failure; I25.10 Atherosclerotic heart disease of native coronary artery without angina pectoris; D62 Acute posthemorrhagic anemia; I48.91 Unspecified atrial fibrillation; R79.1 Abnormal coagulation profile; J44.9 Chronic obstructive pulmonary disease, unspecified; D50.9 Iron deficiency anemia, unspecified; D63.1 Anemia in chronic kidney disease; G47.33 Obstructive sleep apnea (adult) (pediatric); K74.60 Unspecified cirrhosis of liver; I95.9 Hypotension, unspecified; G25.81 Restless legs syndrome; E87.6 Hypokalemia; M81.0 Age-related osteoporosis without current pathological fracture; E11.22 Type 2 diabetes mellitus with diabetic chronic kidney disease; Z86.73 Personal history of transient ischemic attack (TIA), and cerebral infarction without residual deficits; Z98.891 History of uterine scar from previous surgery; Z88.1 Allergy status to other antibiotic agents; Z88.8 Allergy status to other drugs, medicaments and biological substances; Z91.011 Allergy to milk products; Z79.899 Other long term (current) drug therapy; Z79.01 Long term (current) use of anticoagulants; Z79.82 Long term (current) use of aspirin; Z90.710 Acquired absence of both cervix and uterus; Z95.1 Presence of aortocoronary bypass graft; Z95.5 Presence of coronary angioplasty implant and graft; Z86.79 Personal history of other diseases of the circulatory system; Z87.19 Personal history of other diseases of the digestive system
CPT/HCPCS: 36415; 36430; 74176; 80048; 80053; 82607; 82728; 82746; 82947; 83540; 83550; 83735; 83880; 84484; 85014; 85018; 85025; 85379; 85384; 85610; 85730; 86850; 86900; 86901; 86923; 93005; 93010; 94762; 99285-25; A9270; C1751; J1160; J1815; J2354; J2371; J2405; J2470; J2704; J2765; J3430; J7030; J7050; J7120; J7168; P9016

== ENCOUNTER 2025-05-04 13:26 | Inpatient (IN) | payer MEDICARE ==
[~2025-05-04] VITALS: Ht 149.9 cm; Wt 93.0 kg
[2025-05-04] VITALS (7 sets, daily range): BP systolic 105–132; BP diastolic 58–90
[~2025-05-04 13:26] MED LIST changes: +BASAGLAR K100 UNIT/1 SC; -BUSP5 PO; +Buspirone HCl15 MG PO; +Cyclobenzaprine5 MG PO; +METO25ER PO; +PANT40 PO; +ROPI.25 PO; +WARF5 PO
[2025-05-04] MEDS ORDERED: Ondansetron HCl 2 MG / ML 2ML Vial IV PRN (13:35)
[2025-05-04 13:58] LABS: BASOPHILS ABSOLUTE AUTO 0.03 K/mm3 (0.00-0.23); BASOPHILS PERCENT AUTO 0 % (0-2); EOSINOPHILS ABSOLUTE AUTO 0.04 K/mm3 (0.00-0.68); EOSINOPHILS PERCENT AUTO 1 % (0-6); Hematocrit 22.3 % (33.0-51.0); Hemoglobin 6.6 g/dL (11.5-16.0); IMMATURE GRAN ABSOLUTE AUTO 0.04 K/mm3 (0.00-0.10); IMMATURE GRAN PERCENT AUTO 1 % (0-1); LYMPHOCYTES ABSOLUTE AUTO 1.02 K/mm3 (0.84-5.20); LYMPHOCYTES PERCENT AUTO 15 % (21-46); MONOCYTES ABSOLUTE AUTO 0.53 K/mm3 (0.16-1.47); MONOCYTES PERCENT AUTO 8 % (4-13); Mean Corpuscular HGB Conc 29.6 g/dL (31.5-36.5); Mean Corpuscular Volume 85 fL (80-100); NEUTROPHILS ABSOLUTE AUTO 5.26 K/mm3 (1.96-9.15); NEUTROPHILS PERCENT AUTO 76 % (41-73); NRBC ABSOLUTE 0.03 K/mm3 (0.00-0.02); NRBC Auto 0.4 /100 WBC (0.0-0.2); Platelet Count 230 K/mm3 (150-400); RDW Coefficient Variation 18.7 % (11.7-14.2); RDW Standard Deviation 58.3 fL (35.1-46.3)
[2025-05-04 14:11] LABS: Prothrombin Time Results 12.0 Sec (9.7-11.5)
[2025-05-04 14:27] LABS: Alanine Aminotransfer (ALT/SGP 59.0 U/L (12-78); Albumin, Blood 3.6 g/dL (3.4-5.0); Albumin/Globulin Ratio 1.1 (0.8-1.8); Anion Gap 10.0 mmol/L (3-11); Aspartate Aminotrans (AST/SGOT 74.0 U/L (12-37); Bilirubin, Total 1.4 mg/dL (0.1-1.0); Blood Urea Nitrogen 63.0 mg/dL (8-24); CO2, Blood 29.0 mmol/L (21-32); Calcium, Blood 9.4 mg/dL (8.5-10.1); Chloride, Blood 99.0 mmol/L (98-108); Creatinine, Blood 2.0 mg/dL (0.40-1.00); Globulin, Blood 3.4 g/dL (2.2-4.0); Glucose, Blood 223.0 mg/dL (70-99); Potassium, Blood 4.3 mmol/L (3.5-5.5); Sodium, Blood 134.0 mmol/L (136-145); Total Protein, Blood 7.0 g/dL (6.4-8.2)
[2025-05-04] MEDS ORDERED: LORazepam 2 MG/ML 1ML Injection IV ONE ×2 (15:35→21:50)
[2025-05-04] MEDS ORDERED: Metoprolol Tartrate 1 MG/ML 5 ML VIAL IV ONE (15:40)
[2025-05-04 16:21] LABS: Ferritin, Serum 20.0 ng/mL (8-252); Total Iron Binding Capacity 424.0 ug/dL (250-450)
[2025-05-04] MEDS ORDERED: Sod Ferric Gluc Complx/Sucrose 125 MG in NS 100 ML IV SCH (18:05)
[2025-05-04] MEDS ORDERED: NS 500 ML IV SCH (18:10)
[2025-05-04] MEDS ORDERED: BASAGLAR K100 UNIT/1 SC (18:30)
[2025-05-04] MEDS ORDERED: OZEMPIC0.25 MG/02 SC (18:34)
--- NOTE | 2025-05-04 19:22 | NUR ---
ARRIVAL TO PCU REPORT RECEIVED FROM ER NURSE AT 1715. PT ARRIVED TO PCU AT 1755 VIA GURNEY AND ON 3L NC. PT TRANSFERED FROM [facility] TO PCU BED VIA SLIDE SHETT AND 4 STAFF MEMBERS. PT ORIENTED TO ROOM AND CALL LIGHT. PT DAUGHTER PRESENT AND UPDATED AT TIEM OF ARRIVAL TO UNIT.
[2025-05-04] MEDS ORDERED: LORazepam Conc 2 MG/ML - 1ML UDC PO ONE (21:21)
[2025-05-05] VITALS (9 sets, daily range): BP systolic 105–130; BP diastolic 66–96
--- NOTE | 2025-05-05 04:37 | NUR ---
SHIFT SUMMARY PT ALERT HOWEVER OCCASIONALLY FORGETFUL T/O NIGHT. BED ALARM REMAINS ON. VSS ON 2L NC >90%. PT ON TELE IN AFIB 100-120s BUT DOES NOT SUSTAIN IN 120s. PT RECIEVED 2 UNITS OF PRBCs T/O NIGHT WITH NO ISSUES. H&H REDRAW SCHEDULED FOR 0500. NO BOWEL MOVEMENTS THROUGHOUT NIGHT. NO PAIN IN ABDOMEN NOTED. HYPOACTIVE BOWEL SOUNDS. PT VERY RESTLESS THROUGHOUT NIGHT. EXPRESSING ANXIETY ABOUT POTENTIAL BLEED. ALSO EXPRESSED HOW SHE HASNT BEEN SLEEPING AT HOME EITHER. RESIDENT NOTIFIED AND ORDERS PLACED THAT BARELY HELPED. NO FURTHER QUESTIONS OR CONCERNS AT THIS TIME. REMAINS ON A CLEAR LIQUID DIET. WILL CONTINUE WITH PLAN OF CARE. CONTINUE WITH PLAN OF CARE.
[2025-05-05 05:25] LABS: BASOPHILS ABSOLUTE AUTO 0.01 K/mm3 (0.00-0.23); BASOPHILS PERCENT AUTO 0 % (0-2); EOSINOPHILS ABSOLUTE AUTO 0.00 K/mm3 (0.00-0.68); EOSINOPHILS PERCENT AUTO 0 % (0-6); Hematocrit 32.0 % (33.0-51.0); Hemoglobin 9.6 g/dL (11.5-16.0); IMMATURE GRAN ABSOLUTE AUTO 0.05 K/mm3 (0.00-0.10); IMMATURE GRAN PERCENT AUTO 1 % (0-1); LYMPHOCYTES ABSOLUTE AUTO 0.67 K/mm3 (0.84-5.20); LYMPHOCYTES PERCENT AUTO 8 % (21-46); MONOCYTES ABSOLUTE AUTO 0.75 K/mm3 (0.16-1.47); MONOCYTES PERCENT AUTO 9 % (4-13); Mean Corpuscular HGB Conc 30.0 g/dL (31.5-36.5); Mean Corpuscular Volume 87 fL (80-100); NEUTROPHILS ABSOLUTE AUTO 6.86 K/mm3 (1.96-9.15); NEUTROPHILS PERCENT AUTO 82 % (41-73); NRBC ABSOLUTE 0.07 K/mm3 (0.00-0.02); NRBC Auto 0.8 /100 WBC (0.0-0.2); Platelet Count 204 K/mm3 (150-400); RDW Coefficient Variation 17.8 % (11.7-14.2); RDW Standard Deviation 55.8 fL (35.1-46.3)
[2025-05-05 05:51] LABS: Anion Gap 13.0 mmol/L (3-11); Blood Urea Nitrogen 67.0 mg/dL (8-24); CO2, Blood 27.0 mmol/L (21-32); Calcium, Blood 9.6 mg/dL (8.5-10.1); Chloride, Blood 99.0 mmol/L (98-108); Creatinine, Blood 2.23 mg/dL (0.40-1.00); Glucose, Blood 218.0 mg/dL (70-99); Potassium, Blood 4.7 mmol/L (3.5-5.5); Sodium, Blood 134.0 mmol/L (136-145)
[2025-05-05] MEDS ORDERED: Pantoprazole Sodium 40 MG Injection IV SCH (06:00)
[2025-05-05] MEDS ORDERED: Insulin Regular 100 UNIT/ML 10ML Vial SC SCH (07:30)
[2025-05-05 12:11] LABS: Hematocrit 29.3 % (33.0-51.0); Hemoglobin 8.7 g/dL (11.5-16.0)
--- NOTE | 2025-05-05 18:21 | NUR ---
SHIFT NOTE: PT VERY SLEEPY T/O SHIFT. SHE HAS BEEN EASILY ARROUSABLE THIS AFTERNOON. SHE IS FORGETFUL AND NEEDS FREQUENT REORIENTATION. SHE WAS MADE MEDICAL STATUS WITH TELE DUE TO TACHY HEART RATES. HER RATES HAVE REMAINED HIGH 90S LOW 100S T/O DAY. SHE IS AFIB WITH NO ACUTE CHANGES THIS SHIFT. SHE REPORTS MILD TENDERNESS TO HER ABD. NO BM THIS SHIFT. DAUGHTER IS AT BEDSIDE AND HAS BEEN UPDATED ON PLAN OF CARE.
[2025-05-05 18:37] LABS: Hematocrit 30.7 % (33.0-51.0); Hemoglobin 9.1 g/dL (11.5-16.0)
[2025-05-05] MEDS ORDERED: Insulin Glargine-Yfgn 100 Unit/mL 3 ML SYR SC SCH (21:00)
[2025-05-06 04:10] VITALS: BP 104/66
[2025-05-06 04:24] LABS: BASOPHILS ABSOLUTE AUTO 0.03 K/mm3 (0.00-0.23); BASOPHILS PERCENT AUTO 0 % (0-2); EOSINOPHILS ABSOLUTE AUTO 0.12 K/mm3 (0.00-0.68); EOSINOPHILS PERCENT AUTO 1 % (0-6); Hematocrit 30.2 % (33.0-51.0); Hemoglobin 8.9 g/dL (11.5-16.0); IMMATURE GRAN ABSOLUTE AUTO 0.11 K/mm3 (0.00-0.10); IMMATURE GRAN PERCENT AUTO 1 % (0-1); LYMPHOCYTES ABSOLUTE AUTO 1.62 K/mm3 (0.84-5.20); LYMPHOCYTES PERCENT AUTO 18 % (21-46); MONOCYTES ABSOLUTE AUTO 0.79 K/mm3 (0.16-1.47); MONOCYTES PERCENT AUTO 9 % (4-13); Mean Corpuscular HGB Conc 29.5 g/dL (31.5-36.5); Mean Corpuscular Volume 87 fL (80-100); NEUTROPHILS ABSOLUTE AUTO 6.22 K/mm3 (1.96-9.15); NEUTROPHILS PERCENT AUTO 70 % (41-73); NRBC ABSOLUTE 0.17 K/mm3 (0.00-0.02); NRBC Auto 1.9 /100 WBC (0.0-0.2); Platelet Count 199 K/mm3 (150-400); RDW Coefficient Variation 18.2 % (11.7-14.2); RDW Standard Deviation 56.4 fL (35.1-46.3)
[2025-05-06 04:47] LABS: Anion Gap 8.0 mmol/L (3-11); Blood Urea Nitrogen 71.0 mg/dL (8-24); CO2, Blood 29.0 mmol/L (21-32); Calcium, Blood 9.1 mg/dL (8.5-10.1); Chloride, Blood 99.0 mmol/L (98-108); Creatinine, Blood 2.38 mg/dL (0.40-1.00); Glucose, Blood 138.0 mg/dL (70-99); Potassium, Blood 4.3 mmol/L (3.5-5.5); Sodium, Blood 132.0 mmol/L (136-145)
--- NOTE | 2025-05-06 06:02 | NUR ---
SHIFT SUMMARY PT IS A&O X 3, FORGETFUL AT TIMES, ABLE TO MAKE NEEDS KNOWN, MOVING ALL EXTREMITIES WITH PURPOSE, OBEYS COMMANDS, REPOSITIONING SELF IN BED, 1 PERSON TRANSFER TO BSC. CONTINUOUS SPO2, SPO2 GREATER THAN 92% ON BASLINE 2L O2 VIA NC, LUNGS SOUND CLEAR WITH DIMMINISHED BASES, PT REPORTS SOB THAT SHE HAS BEEN DEALING WITH FOR A COUPLE MONTHS NOW. CONTINUOUS TELE MONITORING, AFIB 100 S, BP STABLE WITH MAP GREATER THAN 65, CAP REFILL WNL, PULSES PRESENT T/O, DENIES CHEST P/P T/O THIS SHIFT. BOWEL TONES PRESENT IN ALL 4Q, PT DENIES FEELINGS OF NAUSEA OR CONSTIPATION OR PAIN. PT CONTINENT OF URINE. BED LOWEST POSITION, CALL LIGHT IN REACH, AWAITING TO GIVE REPORT TO ONCOMING RN.
[2025-05-06 08:32] VITALS: BP 128/78
[2025-05-06] MEDS ORDERED: OMEP20ER PO (09:38)
--- NOTE | 2025-05-06 12:26 | NUR ---
SHIFT SUMMARY PATIENT AOX3 ABLE TO MAKE NEEDS KNOWN SHE DDENIES CP OR SOB. HER VITALS ARE STABLE AND SHE IS ON 2LNC WHICH IS HER HOME REQUIREMENT. SHE IS TOLERATING HER MEALS AND IS ABLE TO GET TO THE CHAIR AND BEDSIDE COMMODE WITH A ONE ASSIST. THE DISCHARGE INSTRUCTIONS WERE EXPLAINED TO THE DAUGHTER AT BEDSIDE WITH THE PATIENT AND ALL QUESTIONS WERE ANSWERED.
== END 2025-05-06 11:58 | disposition home or self-care (01) | DRG 378 ==
LOC: ER 13:26 → PCU 16:01
PROVIDERS: Student in an Organized Health Care Education/Training Program; ADMIT Family Medicine
PROC: 30233N1 Transfusion of Nonautologous Red Blood Cells into Peripheral Vein, Percutaneous Approach (ICD-10-PCS; principal; 2025-05-04)
DX: K92.1 Melena (principal); D62 Acute posthemorrhagic anemia; N18.4 Chronic kidney disease, stage 4 (severe); E87.1 Hypo-osmolality and hyponatremia; Z68.41 Body mass index [BMI] 40.0-44.9, adult; I13.0 Hypertensive heart and chronic kidney disease with heart failure and stage 1 through stage 4 chronic kidney disease, or unspecified chronic kidney disease; D63.1 Anemia in chronic kidney disease; Z66 Do not resuscitate; I48.91 Unspecified atrial fibrillation; I25.10 Atherosclerotic heart disease of native coronary artery without angina pectoris; E11.22 Type 2 diabetes mellitus with diabetic chronic kidney disease; J44.9 Chronic obstructive pulmonary disease, unspecified; G47.30 Sleep apnea, unspecified; I50.9 Heart failure, unspecified; Z79.82 Long term (current) use of aspirin; D50.9 Iron deficiency anemia, unspecified; Z86.73 Personal history of transient ischemic attack (TIA), and cerebral infarction without residual deficits; Z90.710 Acquired absence of both cervix and uterus; Z98.890 Other specified postprocedural states; Z95.5 Presence of coronary angioplasty implant and graft; Z79.899 Other long term (current) drug therapy; Z79.4 Long term (current) use of insulin; Z88.8 Allergy status to other drugs, medicaments and biological substances; Z91.011 Allergy to milk products
CPT/HCPCS: 36415; 36430; 80048; 80053; 82607; 82728; 82746; 82947; 83540; 83550; 85014; 85018; 85025; 85610; 85730; 86850; 86900; 86901; 86923; 93005; 93010; 94760; 96374; 96375; 99285-25; A9270; J1815; J2060; J2405; J2470; J2916; P9016